=== PATIENT | female | born 1960 | race Caucasian/White ===

== ENCOUNTER 2021-09-03 07:01 | Outpatient (CLI) | payer BC, SELFPAY ==
--- NOTE | 2021-09-03 07:38 | US_ITS ---
WS: [id number] RIGHT UPPER QUADRANT ULTRASOUND HISTORY: HYPERLIPIDEMIA COMPARISON: None available. Liver: 16.1 cm in length. Liver is normal size. Mild increased echogenicity in attenuation throughout the liver. No bile duct dilatation or mass. Portal Vein: Normal hepatopetal flow with monophasic waveform. Gallbladder: Normally distended gallbladder. Moderate size stone present within the lumen of the gall bladder. Stone measures at least 1.7 cm in diameter. No pericholecystic fluid. Mild gallbladder wall thickening may be due to hepatocellular disease. CBD: 0.6 cm Pancreas: Tail is not visualized. The remaining pancreas is normal. Right kidney: 10.9 cm in length. Normal size and echogenicity. No hydronephrosis or mass. Aorta and IVC: Unremarkable abdominal aorta and IVC. No ascites. US/US liver [id number] IMPRESSION: 1. Cholelithiasis without acute cholecystitis. 2. Normal size liver with hepatic steatosis.
== END 2021-09-03 07:02 | disposition home or self-care (01) ==
PROVIDERS: Visit Provider Clinical Nurse Specialist Adult Health
DX: E78.5 Hyperlipidemia, unspecified (principal); R94.5 Abnormal results of liver function studies
CPT/HCPCS: 76705

== ENCOUNTER 2024-06-09 08:04 | Emergency (ER) | payer BC, SELFPAY ==
[2024-06-09 08:13] VITALS: BP 154/79; PULSE 98; RESP 20; TEMP 36.6; O2SAT 93
--- NOTE | 2024-06-09 08:15 | ECG_ITS ---
[facility] Date: 2024-[facility]-09 Pat Name: Poppy Wright Department: Room: Gender: Female Block Sorter: : 1960 Requested By: Raymond Keys Order Number: [id number] David MD: Paul Pyle M.D. Measurements Intervals [place] Rate: 95 P: 57 [place]: 135 QRS: 64 QRSD: 83 T: 47 QT: 339 QTc: 427 Interpretive Statements SINUS RHYTHM NONSPECIFIC T-WAVE ABNORMALITY INTERPRETATION BASED ON A DEFAULT AGE OF 40 YEARS No previous ECG available for comparison Electronically Signed On 06-09-2024 22:34:31 [facility] [employer] by Paul Pyle M.D. [email or web address]
--- NOTE | 2024-06-09 08:51 | XRR_ITS ---
PROCEDURE INFORMATION: Exam: XR Chest Exam date and time: 06/09/2024 9:06 AM Age: 64 years old Clinical indication: Chest pain and pressure. TECHNIQUE: Imaging protocol: Radiologic exam of the chest. Views: 1 view. COMPARISON: No relevant prior studies available. FINDINGS: Lungs: Unremarkable. No consolidation. Pleural spaces: Unremarkable. No pleural effusion. No pneumothorax. Heart/Mediastinum: Unremarkable. No cardiomegaly. Bones/joints: Unremarkable. XR/XR chest 1V portable [id number] IMPRESSION: No acute findings.
--- NOTE | 2024-06-09 08:52 | W.ED.GENADLT ---
HPI - General Adult General: Chief complaint: General Medical Stated complaint: headache, heart racing Time Seen by Provider: 06/09/24 08:45 Source: patient Mode of arrival: ambulatory Limitations: no limitations History of Present Illness: 64-year-old female states she has been feeling like her hearts been racing since yesterday. She states that she was at work yesterday for like she got overheated exposed some gas fumes and since then she is just felt some malaise and like her heart was racing she denies any severe chest pain denies any shortness of breath denies any nausea or vomiting. Associated symptoms: Reports palpitations; Deny chest pain, dyspnea, headache(s), nausea, rash or vomiting Related Data Previous Rx's Medication Instructions Recorded albuterol sulfate 90 mcg/actuation 2 inh inhalation QID PRN shortness 05/30/22 aerosol inhaler of breath or wheezing #8.5 grams losartan 25 mg tablet 25 mg PO DAILY #90 tabs 12/18/23 levothyroxine 112 mcg tablet 112 mcg PO DAILY 90 days #90 tabs 01/15/24 Allergies Allergy/AdvReac Type Severity Reaction Status Date / Time erythromycin base Allergy hives Verified 06/06/24 09:42 Review of Systems Const: Denies: fever(s), chills, body aches or change in appetite Eyes: Denies: blurry vision or eye discomfort ENMT: Denies: throat pain or dental pain Card: Reports: palpitations; Denies: chest pain Resp: Denies: dyspnea GI: Denies: abdominal pain, nausea, vomiting or diarrhea : Denies: dysuria Musc: Denies: neck pain or back pain Skin/Breast: Denies: rash Neuro: Denies: headache(s) PFSH ED PFSH: Medical History Colon cancer screening declined Mammogram declined Atopic dermatitis Mild intermittent asthma Seasonal allergies Hypothyroid TSH 4.08 on 09/02/22 TSH 0.8 on 10/2023 HTN (hypertension) Surgical History Hx of hysterectomy due to uterine fibroids, ovaries retained (2008) Hx of section Family History Other Cancer Diabetes Social History Smoking and tobacco/nicotine status: never used tobacco/nicotine Alcohol intake: never Physical Exam Const: COMMON NORMALS: no acute distress, patient oriented x3 and healthy appearing HENMT: COMMON NORMALS: normocephalic and atraumatic HEAD & SCALP: normocephalic and atraumatic Eye: COMMON NORMALS: conjunctivae normal CONJUNCTIVA: Yes conjunctivae normal Neck/C-Spine: COMMON NORMALS: full ROM and supple Chest: COMMONS NORMALS: normal inspection of the chest Resp: COMMON NORMALS: normal respiratory effort, No retractions, No use of accessory muscles and clear to auscultation bilaterally AUSCULTATION: clear to auscultation bilaterally Cardio: COMMON NORMALS: regular rate, regular rhythm and No murmurs present (Cardio) RATE: regular rate RHYTHM: regular rhythm GI: COMMON NORMALS: Normal to inspection, nondistended, normoactive bowel sounds present, Soft to palpation, non-tender and no masses PALPATION: Yes Soft to palpation Extremity: COMMON NORMALS: normal to inspection and full ROM Neuro: COMMON NORMALS: patient oriented x3, moves all extremities and no focal motor deficits Psych: COMMON NORMALS: mental status grossly normal, Normal thought process present and cooperative THOUGHT PROCESS: Normal thought process present Skin: COMMON NORMALS: no rashes or lesions noted and no wounds GENERAL SKIN EXAM: no rashes or lesions noted Course Vital Signs: Vital signs: Vital Signs Temperature 97.8 F 06/09/24 08:13 Pulse Rate 98 06/09/24 08:13 Respiratory Rate 20 H 06/09/24 08:13 Blood Pressure 154/79 06/09/24 08:13 Pulse Oximetry 93 06/09/24 08:13 Oxygen Delivery Me thod Room Air 06/09/24 08:13 MDM - General Adult Medical Decision Making Patient presents with palpitation she is well appearing here troponins negative she has no signs of pulmonary embolism no signs of ACS she stable for discharge follow-up with PCP return if worsening. Medical Records I reviewed the patient's medical records. Lab Data I reviewed the patient's lab results. 06/09/24 09:03 06/09/24 09:03 Radiology Impressions Chest X-Ray 06/09/24 08:51 IMPRESSION: No acute findings. Laboratory Results WBC 5.44 10^3/uL (3.29-11.43) 06/09/24 09:03 RBC 5.30 10^6/uL (3.85-5.65) 06/09/24 09:03 Hgb 13.60 g/dL (11.27-16.99) 06/09/24 09:03 Hct 43.7 % (36-47) 06/09/24 09:03 MCV 82.5 fl (85-98) L 06/09/24 09:03 MCH 25.7 pg (27-33) L 06/09/24 09:03 MCHC 31.1 g/dL (30-55) 06/09/24 09:03 RDW 14.5 % (12.1-15.1) 06/09/24 09:03 Plt Count 170 10^3/cmm (157-399) 06/09/24 09:03 MPV 9.6 fL (7.4-10.4) 06/09/24 09:03 Neut % (Auto) 85.9 % 06/09/24 09:03 Lymph % (Auto) 7.0 % 06/09/24 09:03 [place] % (Auto) 6.1 % 06/09/24 09:03 Eos % (Auto) 0.0 % 06/09/24 09:03 Baso % (Auto) 0.4 % 06/09/24 09:03 Neut # (Auto) 4.68 10^3/uL (1.8-7.7) 06/09/24 09:03 Lymph # (Auto) 0.4 10^3/uL (0.8-4.8) L 06/09/24 09:03 [place] # (Auto) 0.3 10^3/uL (0.2-0.9) 06/09/24 09:03 Eos # (Auto) 0.0 10^3/uL (0.0-0.8) 06/09/24 09:03 Baso # (Auto) 0.0 10^3/uL (0.0-0.1) 06/09/24 09:03 Nucleated RBC % (auto) 0 % 06/09/24 09:03 Nucleated RBCs # 0.0 /100WBC 06/09/24 09:03 Sodium 137 mmol/L (136-145) 06/09/24 09:03 Potassium 4.1 mmol/L (3.5-5.1) 06/09/24 09:03 Chloride 100 mmol/L (98-107) 06/09/24 09:03 Carbon Dioxide 26 mmol/L (22-29) 06/09/24 09:03 Anion Gap 15.1 (5-19) 06/09/24 09:03 BUN 12 mg/dL (8-23) 06/09/24 09:03 Creatinine 0.8 mg/dL (0.5-0.9) 06/09/24 09:03 GFR Calculation 72.2 mL/min (90-130) L 06/09/24 09:03 Glucose 121 mg/dL (65-115) H 06/09/24 09:03 Calculated Osmolality 285 mOsm/kg (285-295) 06/09/24 09:03 Calcium 9.4 mg/dL (8.5-10.5) 06/09/24 09:03 Total Bilirubin 0.6 mg/dL (0.15-1.2) 06/09/24 09:03 AST 23 U/L (0-32) 06/09/24 09:03 ALT 27 U/L (0-33) 06/09/24 09:03 Alkaline Phosphatase 89 U/L (35-105) 06/09/24 09:03 Troponin T Baseline < 6 ng/L (0-10) 06/09/24 09:03 Total Protein 7.2 g/dL (6.6-8.7) 06/09/24 09:03 Albumin 4.3 g/dL (3.5-5.2) 06/09/24 09:03 Globulin 2.9 g/dL (1.3-4.6) 06/09/24 09:03 Lipase 23 U/L (13-60) 06/09/24 09:03 All radiology interpretation(s) finalized by discharge EKG Data EKG 1: I personally reviewed and interpreted this EKG as follows: EKG interpretation date: 06/09/24 EKG interpretation time: 08:15 Interpretation: nsr hr [address] or t wave abnormalities qrs 83 qtc 391 Computer generated interpretation: Chest X-Ray 06/09/24 08:51 IMPRESSION: No acute findings. Discharge Plan Discharge Patient Disposition: Home Clinical Impression: Palpitations Condition: Stable Prescriptions: No Action ipratropium-albuterol 0.5 mg-3 mg(2.5 mg base)/3 mL solution for nebulization 3 ml inhalation ONCE Qty: 1 0RF levalbuterol HCl 0.63 mg/3 mL solution for nebulization 0.63 mg inhalation ONCE Qty: 3 0RF albuterol sulfate 90 mcg/actuation HFA aerosol inhaler 2 inh inhalation QID PRN (Reason: shortness of breath or wheezing) Qty: 8.5 2RF losartan 25 mg tablet 25 mg PO DAILY Qty: 90 3RF levothyroxine 112 mcg tablet 112 mcg PO DAILY 90 Days Qty: 90 3RF Discharge Orders: Discharge ED (Routine); Ordered 06/09/24 Ordered By: Raymond Keys Referrals: Yolanda Nunez ROLLER LEVELER [Primary Care Provider] - Discharge Diet: Advance as tolerated Discharge Activity: Resume usual activity Patient Instructions: Heart Palpitations (ED) Coding Level of Care Code ED Sugar Reprocess Operator Head for Katarzyna Morales
[2024-06-09 09:10] LABS: Basophils % 0.4 %; Hematocrit 43.7 % (36-47); Lymphocytes # 0.4 10^3/uL (0.8-4.8); Mean Corpuscular HGB Conc 31.1 g/dL (30-55); Mean Corpuscular Hemoglobin 25.7 pg (27-33); Mean Corpuscular Volume 82.5 fl (85-98); Mean Platelet Volume 9.6 fL (7.4-10.4); Monocytes # 0.3 10^3/uL (0.2-0.9); Monocytes % 6.1 %; Neutrophils # 4.68 10^3/uL (1.8-7.7); Neutrophils % 85.9 %; Nucleated Red Blood Cells % 0 %; Platelet Count 170 10^3/cmm (157-399); Red Cell Distribution Width 14.5 % (12.1-15.1); White Blood Count 5.44 10^3/uL (3.29-11.43)
[2024-06-09 09:25] VITALS: BP 116/80; PULSE 92; RESP 31
[2024-06-09 09:27] LABS: Troponin(5th) Baseline < 6 ng/L (0-10)
[2024-06-09 09:29] LABS: Alanine Aminotransferase 27 U/L (0-33); Albumin Level 4.3 g/dL (3.5-5.2); Alkaline Phosphatase 89 U/L (35-105); Aspartate Amino Transferase 23 U/L (0-32); Blood Urea Nitrogen 12 mg/dL (8-23); Calcium 9.4 mg/dL (8.5-10.5); Carbon Dioxide 26 mmol/L (22-29); Chloride 100 mmol/L (98-107); Creatinine Clr Calc Pharmacy 104.2864; Globulin 2.9 g/dL (1.3-4.6); Glomerular Filtration Rate 72.2 mL/min (90-130); Glucose 121 mg/dL (65-115); Lipase 23 U/L (13-60); Osmolality Calculated 285 mOsm/kg (285-295); Sodium 137 mmol/L (136-145); Total Bilirubin 0.6 mg/dL (0.15-1.2); Total Protein 7.2 g/dL (6.6-8.7)
[2024-06-09 09:33] LABS: Anion Gap 15.1 (5-19); Potassium 4.1 mmol/L (3.5-5.1)
[2024-06-09 09:55] VITALS: BP 116/80; PULSE 87; RESP 25
[2024-06-09 10:09] VITALS: BP 139/80; PULSE 94; O2SAT 95
== END 2024-06-09 10:22 | disposition home or self-care (01) ==
PROVIDERS: Emergency Provider Emergency Medicine
DX: R00.2 Palpitations (principal); I10 Essential (primary) hypertension
CPT/HCPCS: 36415; 71045; 80053; 83690; 84484; 85025; 93005; 99285

== ENCOUNTER → 2025-06-02 10:58 | Outpatient (BNVA) | payer MEDICARE, SELFPAY | PROVIDERS: Visit Provider Family Medicine | DX: E03.9 Hypothyroidism, unspecified (principal); I10 Essential (primary) hypertension | CPT/HCPCS: 80061; 84443; 85025 ==